=== PATIENT | female | born 1940 | race American Indian/Alaskan Native ===

== ENCOUNTER 2017-09-08 11:22 | Outpatient (CLI) | payer MEDICARE | END 2017-09-08 11:23 | disposition home or self-care (01) | LOC: CARD 11:22 | PROVIDERS: ATTEND Internal Medicine | DX: I34.0 Nonrheumatic mitral (valve) insufficiency (principal); I07.1 Rheumatic tricuspid insufficiency; I27.20 Pulmonary hypertension, unspecified | CPT/HCPCS: 93306 ==

== ENCOUNTER 2017-09-18 05:56 | Day surgery (SDC) | payer MEDICARE ==
[2017-09-18] MEDS ORDERED: NACL 0.9% 500 ML 500 ML ONE (05:59)
[2017-09-18 06:49] LABS: Basophils % (Auto) 0.8 % (0.0-1.8); Eosinophils # (Auto) 0.2 K/mm3 (0.0-0.4); Eosinophils % (Auto) 2.8 % (0.0-4.3); Hematocrit 34.6 % (30.3-42.9); Hemoglobin 11.3 gm/dl (10.1-14.3); Lymphocytes # (Auto) 2.5 K/mm3 (1.2-5.4); Lymphocytes % (Auto) 44.6 % (13.4-35.0); Mean Corpuscular HGB Conc 33 % (30-34); Mean Corpuscular Hemoglobin 31 pg (28-32); Mean Corpuscular Volume 95 fl (79-97); Monocytes # (Auto) 0.4 K/mm3 (0.0-0.8); Monocytes % (Auto) 8.1 % (0.0-7.3); Platelet Count 146 K/mm3 (140-440); Red Blood Count 3.63 M/mm3 (3.65-5.03)
[2017-09-18] MEDS ORDERED: NACL 0.9% 500 ML 500 ML IV SCH (07:00)
[2017-09-18 07:01] LABS: BUN/Creatinine Ratio 10; Blood Urea Nitrogen 8 mg/dL (7-17); Calcium 9.4 mg/dL (8.4-10.2); Hemolysis Index 242; INR 0.94 (0.87-1.13)
[2017-09-18] MEDS ORDERED: HEPARIN/NS 5000 UNIT/500ML(CATH LAB) 1,000 ML IR ONE (07:24)
[2017-09-18] MEDS ORDERED: NITROGLYCERIN SYRINGE 3 ML ONE (07:25)
[2017-09-18] MEDS ORDERED: XYLOCAINE 2% INFILTRATI ONE (07:25)
[2017-09-18] MEDS ORDERED: VERSED ONE (07:25)
[2017-09-18] MEDS ORDERED: SUBLIMAZE ONE (07:25)
[2017-09-18] MEDS: CALAN ONE ×2 (08:25→08:27)
[2017-09-18] MEDS: HEPARIN 10,000 UNITS/10 ML ONE ×2 (08:25→08:27)
--- NOTE | 2017-09-18 09:28 | Discharge Summary ---
Short Stay Discharge Plan Activity: advance as tolerated Weight Bearing Status: Full Weight Bearing Diet: low fat, low cholesterol, low salt Special Instructions: no heavy lifting (for 3 days) Follow up with: EPHRAIM DONAHUE MD [Primary Care Provider] - 7 Days BARBARA ABARCA MD [Staff Physician] - 7 Days
--- NOTE | 2017-09-18 09:47 | Cardiac Catherization Report ---
HISTORY: The patient is a 76-year-old female who was recently found to have a severe dilated cardiomyopathy. There is a history of hypertension and diabetes. Coronary angiography was recommended. PROCEDURE: Left heart catheterization, ventriculography, and coronary angiography via the right radial artery using 5-Spanish Lillian catheters and a pigtail catheter, and AR1 was used to cannulate the right coronary artery. COMPLICATIONS: None. ESTIMATED BLOOD LOSS: 10-20 mL. SEDATION: Intravenous Versed and fentanyl. TISSUE SAMPLE: None. PREPROCEDURE DIAGNOSIS: Suspect coronary artery disease. POSTPROCEDURE DIAGNOSES: Dilated cardiomyopathy with mild coronary artery disease. HEMODYNAMICS: Central aortic pressure 149/86, left ventricular pressure 146/34. SEDATION START TIME: 8:23 a.m. SEDATION END TIME: 8:53 a.m. PROCEDURE START TIME 8:26 a.m. TOTAL SEDATION TIME: 30 minutes. ANGIOGRAPHIC RESULTS: 1. Left ventricle: The ventriculogram reveals left ventricular enlargement with global hypokinesia. It appears that the inferior wall is more severely hypokinetic than the anterior wall and estimation of the ejection fraction is 25-30%. 2. Right coronary artery: This is a dominant vessel and there are mild atherosclerotic changes within 30% stenosis of the ostium, a 30% stenosis of the mid portion. There is a 30% stenosis in the early distal portion. 3. Left coronary artery: This vessel is of a fairly large caliber and has diffuse intimal irregularities. There is 20% stenosis of the left main. FINAL IMPRESSION: Mild coronary artery disease, dilated cardiomyopathy with severe left ventricular dysfunction. Note that the ejection fraction appears to have improved since the recent echocardiogram. Ejection fraction is now 25-30%. It appears that the inferior wall is more severely hypokinetic than the anterior wall. PLAN: Aggressive therapy for hypertension, diabetes, hyperlipidemia, and the cardiomyopathy. The patient is already on beta blockers and KWAN inhibitors. Spironolactone will be considered on an outpatient basis. The patient will be reevaluated in a few months to see if she is an appropriate candidate for ICD therapy. The patient will be observed closely for congestive heart failure and arrhythmias. Diagnoses and treatment will be reviewed with the patient and the family at each visit. The patient appears stable to undergo breast surgery for underlying cancer. Office followup will be recommended within 1 week. DISPOSITION: Will return home with a family member. CURRENT CONDITION: Stable. [facility]# [id number] LAURA/[id number]
[2017-09-18 12:08] VITALS: BP 139/63
== END 2017-09-18 12:25 | disposition home or self-care (01) ==
LOC: CATHLABREC 05:56
PROVIDERS: ATTEND Internal Medicine
DX: I25.10 Atherosclerotic heart disease of native coronary artery without angina pectoris (principal); I42.0 Dilated cardiomyopathy; I10 Essential (primary) hypertension; E11.9 Type 2 diabetes mellitus without complications; E78.00 Pure hypercholesterolemia, unspecified; Z79.01 Long term (current) use of anticoagulants; Z79.82 Long term (current) use of aspirin; Z79.84 Long term (current) use of oral hypoglycemic drugs; Z79.899 Other long term (current) drug therapy; Z87.891 Personal history of nicotine dependence; Z85.3 Personal history of malignant neoplasm of breast; Z98.890 Other specified postprocedural states
CPT/HCPCS: 36415; 80048; 82962; 84132; 85025; 85610; 85730; 93005; 93010; 93458; 99156; 99157; C1894; J1644; J2250; J3010; J7040; Q9967